=== PATIENT | male | born 1990 | race Caucasian/White ===

== ENCOUNTER → 2016-06-25 | Outpatient (CLI) | payer OTHER ==
--- NOTE | 2016-06-25 12:22 | US ---
EXAMINATION TYPE: US bladder DATE OF EXAM: 06/25/2016 11:19 AM COMPARISON: No previous CLINICAL HISTORY: N41.1 Chronic prostatitis. Urination disorder EXAM MEASUREMENTS: Post Void Residual Volume: 25.2 mL The bladder appears anechoic. Color Doppler performed to assess ureteral jets. Bilateral Jets seen: yes Normal Post Void Residual (less than 50ml): yes IMPRESSION: Unremarkable bladder ultrasound
== END | disposition home or self-care (01) ==
LOC: RADUSWWP 11:03
PROVIDERS: ATTEND Family Medicine
DX: N39.9 Disorder of urinary system, unspecified (principal); N41.1 Chronic prostatitis
CPT/HCPCS: 76857